=== PATIENT | male | born 1990 | race Caucasian/White ===

== ENCOUNTER 2019-10-24 21:57 | Emergency (ER) | payer BC ==
[2019-10-24 22:20] VITALS: PULSE 58
[2019-10-24 22:25] VITALS: BP 133/99
--- NOTE | 2019-10-24 22:49 | EDM.PDOC ---
ED HPI GENERAL MEDICAL PROBLEM - General Chief Complaint: Abdominal Pain Stated Complaint: ABDOMINAL PAIN Time Seen by Provider: 10/24/19 22:43 - History of Present Illness INITIAL COMMENTS - FREE TEXT/NARRATIVE: 29-year-old male presents emergency room with abdominal pain This is been going on for the last 36 hours or so. The patient's been nauseated he really struggles not to vomit he has abdominal pain mid abdomen but seems to favor the right side. He has had a little bit of burning with urination. He has felt a little chilled at times but has not measured a temperature. He is got no prior history of abdominal surgeries. He is passing gas last BM may have been a little loose. Abdomen Pain Score (Numeric/FACES): 8 - Related Data Allergies Allergy/AdvReac Type Severity Reaction Status Date / Time Sulfa (Sulfonamide Allergy Facial Verified 10/24/19 22:13 Antibiotics) Swelling Past Medical History - Past Health History Medical/Surgical History: Denies Medical/Surgical History Neurological History: Reports: Migraines Other Neuro History: past - Past Surgical History HEENT Surgical History: Reports: Adenoidectomy, Oral Surgery, Tonsillectomy Other Musculoskeletal Surgeries/Procedures:: AC seperation in Left shoulder. Social & Family History - Tobacco Use Smoking Status *Q: Former Smoker Used Tobacco, but Quit: Yes Month/Year Tobacco Last Used: 2011 - Caffeine Use Caffeine Use: Reports: None - Recreational Drug Use Recreational Drug Use: No ED ROS GENERAL - Review of Systems Review Of Systems: See Below Constitutional: Reports: Chills. Denies: Night Sweats, Diaphoresis HEENT: Reports: No Symptoms Respiratory: Reports: No Symptoms Cardiovascular: Reports: No Symptoms Endocrine: Reports: No Symptoms GI/Abdominal: Reports: Abdominal Pain, Diarrhea, Nausea. Denies: Constipation, Vomiting : Reports: No Symptoms Musculoskeletal: Reports: No Symptoms ED EXAM, GI/ABD - Physical Exam Exam: See Below Exam Limited By: No Limitations General Appearance: Alert, No Apparent Distress Head: Atraumatic, Normocephalic Neck: Normal Inspection, Supple, Non-Tender, Full Range of Motion Respiratory/Chest: No Respiratory Distress, Lungs Clear, Normal Breath Sounds Cardiovascular: Regular Rate, Rhythm, No Edema, No Murmur GI/Abdominal Exam: Normal Bowel Sounds, Soft, Other (Is midepigastric periumbilical tenderness that extends into the right upper quadrant a little bit and to a lesser degree into the right lower quadrant. No rigidity rebound or guarding appreciated) Back Exam: Normal Inspection. No: CVA Tenderness (L), CVA Tenderness (R) Extremities: Normal Inspection, No Pedal Edema Course - Vital Signs Last Recorded V/S: Last Vital Signs Temp 36.6 C 10/24/19 22:15 Pulse 58 L 10/24/19 22:15 Resp 16 10/24/19 22:15 BP 133/99 H 10/24/19 22:25 Pulse Ox 100 10/24/19 22:15 - Orders/Labs/Meds Orders: Active Orders 24 hr Category Date Time Status Influenza Vaccine Charge [RC] .DISCHARGE Care 10/24/19 22:25 Active Abdomen 2V AP Flat Upright [CR] Stat Exams 10/24/19 22:54 Taken Labs: Laboratory Tests 10/24/19 10/24/19 10/24/19 Range/Units 23:00 23:00 23:19 WBC 6.05 (4.23-9.07) K/mm3 RBC 5.48 (4.63-6.08) M/mm3 Hgb 16.0 (13.7-17.5) gm/dl Hct 47.8 (40.1-51.0) % MCV 87.2 (79.0-92.2) fl MCH 29.2 (25.7-32.2) pg MCHC 33.5 (32.2-35.5) g/dl RDW Std Deviation 41.4 (35.1-43.9) fL Plt Count 228 (163-337) K/mm3 MPV 9.7 (9.4-12.3) fl Neutrophils % (Manual) 68 H (40-60) % Band Neutrophils % 0 (0-10) % Lymphocytes % (Manual) 27 (20-40) % Atypical Lymphs % 0 % Monocytes % (Manual) 2 (2-10) % Eosinophils % (Manual) 1 (0.8-7.0) % Basophils % (Manual) 2 H (0.2-1.2) Platelet Estimate Adequate RBC Morph Comment Normal Sodium 141 (136-145) mEq/L Potassium 3.7 (3.5-5.1) mEq/L Chloride 105 (98-107) mEq/L Carbon Dioxide 28 (21-32) mEq/L Anion Gap 11.7 (5-15) BUN 8 (7-18) mg/dL Creatinine 0.8 (0.7-1.3) mg/dL Est Cr Clr Drug Dosing 151.20 mL/min Estimated GFR (MDRD) > 60 (>60) mL/min BUN/Creatinine Ratio 10.0 L (14-18) Glucose 105 (74-106) mg/dL Calcium 9.4 (8.5-10.1) mg/dL Total Bilirubin 0.6 (0.2-1.0) mg/dL AST 10 L (15-37) U/L ALT 22 (16-63) U/L Alkaline Phosphatase 55 (46-116) U/L Total Protein 7.0 (6.4-8.2) g/dl Albumin 4.3 (3.4-5.0) g/dl Globulin 2.7 gm/dL Albumin/Globulin Ratio 1.6 (1-2) Lipase 73 (73-393) U/L Urine Color Yellow (Yellow) Urine Appearance Slt cloudy H (Clear) Urine pH 7.0 (5.0-8.0) Ur Specific [place] 1.025 (1.005-1.030) Urine Protein Negative (Negative) Urine Glucose (UA) Negative (Negative) Urine Ketones Negative (Negative) Urine Occult Blood Negative (Negative) Urine Nitrite Negative (Negative) Urine Bilirubin Negative (Negative) Urine Urobilinogen 0.2 (0.2-1.0) Ur Leukocyte Esterase Negative (Negative) Urine RBC Not seen (0-5) /hpf Urine WBC Not seen (0-5) /hpf Ur Epithelial Cells Not seen (0-5) /hpf Amorphous Sediment Moderate H (NOT SEEN) /hpf Urine Bacteria Not seen (FEW) /hpf Urine Mucus Not seen (FEW) /hpf Meds: Medications Discontinued Medications Generic Name Dose Route Start Last Admin Trade Name Freq PRN Reason Stop Dose Admin Influenza Virus Vaccine 1 each 10/24/19 22:24 Pharmacy To Dose - Influenza Vaccine IM 10/24/19 22:25 ONETIME ONE Influenza Virus Vaccine 60 mcg 10/24/19 23:00 10/24/19 22:52 Fluzone Quad Syringe IM 10/24/19 23:01 60 mcg .ONCE ONE Administration Ondansetron HCl 4 mg 10/24/19 23:24 10/24/19 23:30 Zofran Odt PO 10/24/19 23:25 4 mg ONETIME ONE Administration - Re-Assessments/Exams Free Text/Narrative Re-Assessment/Exam: 10/25/19 00:28 Laboratory evaluation is unrevealing. KUB and upright is nonacute. Patient is doing better after Zofran and would like to go home at this time. We will treat the patient with Zofran clear liquid diet for the next 24 hours then slowly advance as tolerated Departure - Departure Time of Disposition: 00:28 Disposition: Home, Self-Care 01 Clinical Impression: Gastroenteritis - Discharge Information Referrals: Caridad Sotomayor PA-C [Primary Care Provider] - Forms: ED Department Discharge Additional Instructions: Return to the emergency room with any questions problems or worsening symptoms. Return to the emergency room in 24 hours if not improving sooner if getting worse. Clear liquid diet for the next 24 hours then slowly advance as tolerated. You were given the generic form of Zofran #10. 4 mg take 1 every 4-6 hours as needed for nausea. Sepsis Event Note - Evaluation Sepsis Screening Result: No Definite Risk - Focused Exam Vital Signs: Vital Signs Temp Pulse Resp BP Pulse Ox 10/24/19 22:25 133/99 H 10/24/19 22:15 36.6 C 58 L 16 142/103 H 100 Date Exam was Performed: 10/25/19 Time Exam was Performed: 00:27 - My Orders Last 24 Hours: My Active Orders 10/24/19 22:25 Influenza Vaccine Charge [RC] .DISCHARGE 10/24/19 22:54 Abdomen 2V AP Flat Upright [CR] Stat - Assessment/Plan Last 24 Hours: My Active Orders 10/24/19 22:25 Influenza Vaccine Charge [RC] .DISCHARGE 10/24/19 22:54 Abdomen 2V AP Flat Upright [CR] Stat
[2019-10-24] MEDS ORDERED: FLU Vacc QS2019-20(6MOS+)/PF 60 MCG/0.5 ML SYRINGE IM ONE (23:00)
[2019-10-24] MEDS ORDERED: Ondansetron 4 MG Tab.DIS PO ONE (23:24)
--- NOTE | 2019-10-26 07:26 | CR ---
Abdomen: Supine and upright views of the abdomen were obtained. Comparison: No previous abdominal x-ray. Bowel gas pattern appears within normal limits. No free air is seen. Bony structures appear within normal limits for the patient's age. No abnormal calcifications or soft tissue abnormality is seen. Impression: 1. Nothing acute is identified on two-view abdominal x-ray. Diagnostic code #1 This report was dictated in [place] Standard Time
== END 2019-10-25 00:38 | disposition home or self-care (01) ==
LOC: JD.ED 21:57
DX: K52.9 Noninfective gastroenteritis and colitis, unspecified (principal); Z23 Encounter for immunization; Z87.891 Personal history of nicotine dependence; Z88.2 Allergy status to sulfonamides
CPT/HCPCS: 36415; 74019; 80053; 81001; 83690; 85007; 85027; 90471; 90686; 99284; A9270; 99283; G0008

== ENCOUNTER 2019-11-21 21:22 | Emergency (ER) | payer BC ==
[2019-11-21 21:58] VITALS: BP 132/92; PULSE 76
[2019-11-21] MEDS ORDERED: Ketorolac 30 MG/ML SDV IVPUSH ONE (22:09)
[2019-11-21] MEDS ORDERED: diphenhydrAMINE 50 MG/ML SDV IVPUSH ONE (22:09)
[2019-11-21] MEDS ORDERED: Metoclopramide 10 MG/2 ML SDV IVPUSH ONE (22:09)
[2019-11-21] MEDS ORDERED: Sodium Chloride 0.9% 10 ML Syringe FLUSH PRN (22:09)
[2019-11-21] MEDS ORDERED: Sodium Chloride 0.9% 1,000 ML IV SCH (22:15)
--- NOTE | 2019-11-21 22:31 | EDM.PDOC ---
ED HPI GENERAL MEDICAL PROBLEM - General Chief Complaint: Headache Stated Complaint: CLUSTER HEADACHE Time Seen by Provider: 11/21/19 22:09 Source of Information: Reports: Patient, RN Notes Reviewed History Limitations: Reports: No Limitations - History of Present Illness INITIAL COMMENTS - FREE TEXT/NARRATIVE: Patient is a 29-year-old male who presents to the ED for the evaluation of a headache. Patient notes that he has had this headache for about 72 hours, he notes he is tried multiple [id number] medications such as Tylenol, baby aspirin, Aleve, and Zyrtec and Benadryl with not a lot of relief. He did try to go the chiropractor, but this is not helped as well. He states he is nauseous with this as well, and has not been able to get much sleep he notes that he is gotten about 45 minutes of sleep in the past few days. Patient states he is usually okay during the day, but the headache worsens when he gets home, and states that it is even worse when the lights are out. Patient is not complaining of any sinus pressure or congestion, they do state that he had a fever roughly 2 days ago. He has a little bit of blurred vision as well with this in his left eye, and he states that the pain is mostly in the left hemisphere of his head, and behind his left eye. He notes that he did have a prescription for Maxalt for suspected migraines a few years back, but he does not think that that helped when he took it as well. He would rate his headache pain at about a 6 out of 10 today. Treatments LOCK TENDER: Reports: Acetaminophen, Aspirin Other Treatments LOCK TENDER: 1900 1000 mg acetaminophen, 4 baby aspirin, and a zyrtec Left Anterior Frontal Head Pain Score (Numeric/FACES): 9 - Related Data Allergies Allergy/AdvReac Type Severity Reaction Status Date / Time Sulfa (Sulfonamide Allergy Facial Verified 10/24/19 22:13 Antibiotics) Swelling Past Medical History - Past Health History Medical/Surgical History: Denies Medical/Surgical History Neurological History: Reports: Migraines Other Neuro History: past - Past Surgical History HEENT Surgical History: Reports: Adenoidectomy, Oral Surgery, Tonsillectomy Other Musculoskeletal Surgeries/Procedures:: AC seperation in Left shoulder. Social & Family History - Family History Family Medical History: Noncontributory - Tobacco Use Smoking Status *Q: Never Smoker Second Hand Smoke Exposure: No - Caffeine Use Caffeine Use: Reports: Coffee - Recreational Drug Use Recreational Drug Use: No ED ROS GENERAL - Review of Systems Review Of Systems: See Below Constitutional: Reports: Fever (2 days ago, afebrile today). Denies: Chills HEENT: Reports: Vision Change (L eye blurred vision). Denies: Ear Pain, Rhinitis, Sinus Problem Respiratory: Denies: Shortness of Breath, Cough Cardiovascular: Denies: Chest Pain GI/Abdominal: Reports: Nausea. Denies: Abdominal Pain, Vomiting Neurological: Reports: Headache (L hemisphere of head and behind left eye). Denies: Confusion - Physical Exam Exam: See Below Exam Limited By: No Limitations General Appearance: Alert, WD/WN, No Apparent Distress Eye Exam: Bilateral Eye: EOMI, Normal Inspection, PERRL Ears: Normal External Exam, Normal Canal, Hearing Grossly Normal, Normal TMs Nose: Normal Inspection Throat/Mouth: Normal Inspection, Normal Lips, Normal Teeth, Normal Gums, Normal Oropharynx, Normal Voice, No Airway Compromise Head Exam: Atraumatic, Normocephalic Neck: Normal Inspection Respiratory/Chest: No Respiratory Distress, Lungs Clear, Normal Breath Sounds, No Accessory Muscle Use, Chest Non-Tender, Prolonged Expiration Cardiovascular: Regular Rate, Rhythm, No Murmur GI/Abdominal: Normal Bowel Sounds, Soft, Non-Tender, No Distention, No Mass Neuro Exam (Abbreviated): Alert, Oriented, CN II-XII Intact (grossly), Normal Cognition, No Motor/Sensory Deficits Extremities: Normal Inspection, Normal Capillary Refill Psychiatric: Normal Affect, Normal Mood Skin Exam: Warm, Dry, Intact, Normal Color, No Rash Course - Vital Signs Last Recorded V/S: Last Vital Signs Temp 98.4 F 11/21/19 21:51 Pulse 76 11/21/19 21:51 Resp 16 11/21/19 21:51 BP 132/92 H 11/21/19 21:51 Pulse Ox 99 11/21/19 21:51 - Orders/Labs/Meds Orders: Active Orders 24 hr Category Date Time Status Peripheral IV Care [RC] . DIRECTED Care 11/21/19 22:10 Ordered Sodium Chloride 0.9% @ 125 MLS/HR (1000ml Bag) Med 11/21/19 22:15 Ordered Sodium Chloride 0.9% [Normal Saline] 1,000 ml IV ASDIRECTED Sodium Chloride 0.9% [Saline Flush] Med 11/21/19 22:09 Ordered 10 ml FLUSH ASDIRECTED PRN Peripheral IV Insertion Adult [OM.PC] Routine Oth 11/21/19 22:10 Ordered Medication Orders Sodium Chloride (Normal Saline) 1,000 mls @ 125 mls/hr IV ASDIRECTED RIKA Last Admin: 11/21/19 22:28 Dose: 125 mls/hr Sodium Chloride (Saline Flush) 10 ml FLUSH ASDIRECTED PRN PRN Reason: Keep Vein Open Last Admin: 11/21/19 22:29 Dose: 10 ml Meds: Medications Generic Name Dose Route Start Last Admin Trade Name Freq PRN Reason Stop Dose Admin Sodium Chloride 1,000 mls @ 125 mls/hr 11/21/19 22:15 11/21/19 22:28 Normal Saline IV 125 mls/hr ASDIRECTED RIKA Administration Sodium Chloride 10 ml 11/21/19 22:09 11/21/19 22:29 Saline Flush FLUSH 10 ml ASDIRECTED PRN Administration Keep Vein Open Discontinued Medications Generic Name Dose Route Start Last Admin Trade Name Freq PRN Reason Stop Dose Admin Diphenhydramine HCl 25 mg 11/21/19 22:09 11/21/19 22:28 Benadryl IVPUSH 11/21/19 22:10 25 mg ONETIME ONE Administration Ketorolac Tromethamine 30 mg 11/21/19 22:09 11/21/19 22:28 Toradol IVPUSH 11/21/19 22:10 30 mg ONETIME ONE Administration Metoclopramide HCl 10 mg 11/21/19 22:09 11/21/19 22:28 Reglan IVPUSH 11/21/19 22:10 10 mg ONETIME ONE Administration - Re-Assessments/Exams Free Text/Narrative Re-Assessment/Exam: 11/21/19 22:31 Patient presents to the ED for evaluation of a headache. I will have an IV placed with some IV fluids, 10 mg of Reglan, 25 mg Benadryl, 30 mg Toradol for initial management. Will reassess after the meds have been given. 11/21/19 23:16 Patient was reassessed at bedside, states he is feeling better and his headache is reduced by 50%. Will discharge home with general recommendations. Departure - Departure Time of Disposition: 23:16 Disposition: Home, Self-Care 01 Condition: Fair Clinical Impression: Headache Qualifiers: Headache type: unspecified Headache chronicity pattern: acute headache Intractability: not intractable Qualified Code(s): R51 - Headache - Discharge Information *PRESCRIPTION DRUG MONITORING PROGRAM REVIEWED*: No *COPY OF PRESCRIPTION DRUG MONITORING REPORT IN PATIENT PADDY: No Instructions: General Headache Without Cause, [id number] Referrals: Caridad Sotomayor PA-C [Primary Care Provider] - Forms: ED Department Discharge Additional Instructions: You were evaluated in the ED for your headache. You were given a combination of medications and IV fluid for management. This did seem to provide you pretty good relief of your symptoms. Recommend that you go home and rest in a quiet, darkened room. Try also to keep well hydrated. Please return to the ED if your symptoms should change or worsen. Sepsis Event Note - Evaluation Sepsis Screening Result: No Definite Risk - Focused Exam Vital Signs: Vital Signs Temp Pulse Resp BP Pulse Ox 11/21/19 21:51 98.4 F 76 16 132/92 H 99 Date Exam was Performed: 11/21/19 Time Exam was Performed: 23:15 - My Orders Last 24 Hours: My Active Orders 11/21/19 22:09 Sodium Chloride 0.9% [Saline Flush] 10 ml FLUSH ASDIRECTED PRN 11/21/19 22:10 Peripheral IV Care [RC] . DIRECTED Peripheral IV Insertion Adult [OM.PC] Routine 11/21/19 22:15 Sodium Chloride 0.9% @ 125 MLS/HR (1000ml Bag) Sodium Chloride 0.9% [Normal Saline] 1,000 ml IV ASDIRECTED - Assessment/Plan Last 24 Hours: My Active Orders 11/21/19 22:09 Sodium Chloride 0.9% [Saline Flush] 10 ml FLUSH ASDIRECTED PRN 11/21/19 22:10 Peripheral IV Care [RC] . DIRECTED Peripheral IV Insertion Adult [OM.PC] Routine 11/21/19 22:15 Sodium Chloride 0.9% @ 125 MLS/HR (1000ml Bag) Sodium Chloride 0.9% [Normal Saline] 1,000 ml IV ASDIRECTED
== END 2019-11-21 23:34 | disposition home or self-care (01) ==
LOC: JD.ED 21:22
DX: R51 Headache (principal); Z88.2 Allergy status to sulfonamides
CPT/HCPCS: 96361; 96374; 96375; 99284; J1200; J1885; J2765; J7030; 99283

== ENCOUNTER 2022-09-03 20:13 | Emergency (ER) | payer BC ==
[2022-09-03] MEDS ORDERED: SUMAtriptan 6 MG/0.5 ML SDV SUBCUT ONE (21:12)
[2022-09-03] MEDS ORDERED: SUMAtriptan 50 MG Tab PO ONE (22:18)
[2022-09-03 23:10] VITALS: BP 112/71; PULSE 67
== END 2022-09-03 22:55 | disposition home or self-care (01) ==
LOC: JD.ED 20:13
DX: G44.019 Episodic cluster headache, not intractable (principal); R06.00 Dyspnea, unspecified; Z72.0 Tobacco use; Z88.2 Allergy status to sulfonamides; Z86.16 Personal history of COVID-19
CPT/HCPCS: 71046; 96372; 99284; J3030